=== PATIENT | female | born 1995 | race Hispanic/Latino ===

== ENCOUNTER 2018-01-11 23:56 | Emergency (ER) | payer OTHER ==
[~2018-01-11] VITALS: Ht 152.4 cm; Wt 72.1 kg
[2018-01-12 00:15] VITALS: BP 00/00
[2018-01-12 01:14] LABS: HEMATOCRIT 35.4 % (36.0-46.0); HEMOGLOBIN 11.6 G/DL (11.9-15.5); MCH 27.8 PG (29.0-34.0); MCHC 32.8 G/DL (30.0-36.0); MCV 84.7 FL (83-99); PLATELET COUNT 304 K/uL (156-360); RBC DIS.WIDTH-CV 14.4 % (11.8-14.6); RBC DIS.WIDTH-SD 44.4 % (39-53); RED BLOOD COUNT 4.18 M/uL (3.80-5.20); WHITE BLOOD COUNT 13.2 K/uL (4.1-10.2)
[2018-01-12 01:24] LABS: CHLORIDE 105 mEq/L (99-109); POTASSIUM 3.4 mEq/L (3.7-5.4); SODIUM 140 mEq/L (136-147)
[2018-01-12 01:25] LABS: GLUCOSE 110 mg/dL (70-99)
[2018-01-12 01:29] LABS: CREATININE 0.7 mg/dL (0.6-1.3); GFR ESTIMATE (CALCULATED) > 59 mL/min/
[2018-01-12 01:30] LABS: UREA NITROGEN (BUN) 16 mg/dL (9-23)
[2018-01-12 01:40] LABS: TROP-I INTERPRETATION NEGATIVE; TROPONIN-I 0.01 ng/mL (0.0-0.30)
[2018-01-12] MEDS ORDERED: TORADOL10 MG PO (02:49)
== END 2018-01-12 03:24 | disposition home or self-care (01) ==
LOC: EME 23:56
DX: R07.89 Other chest pain (principal); S29.001A Unspecified injury of muscle and tendon of front wall of thorax, initial encounter
CPT/HCPCS: 71046; 80048; 84484; 85027; 93005; 99281; 99284